=== PATIENT | male | born 1965 | race Caucasian/White ===

== ENCOUNTER → 2023-04-07 | Outpatient (CLI) | payer OTHER ==
--- NOTE | 2023-04-07 15:02 | XR ---
EXAMINATION TYPE: XR lumbar spine 2 or 3V DATE OF EXAM: 04/07/2023 CLINICAL HISTORY: Lower back pain TECHNIQUE: Three views of the lumbar spine are submitted. COMPARISON: None. FINDINGS: There are 5 lumbar type vertebral bodies identified. The lumbar spine shows satisfactory alignment w ithout evidence of acute fracture or dislocation. Suggested pars defect at L5-S1 on the left. Vertebr al body heights are within normal limits. There is mild joint space narrowing with endplate scleros is at T11-T12 and L5-S1. The overlying soft tissue appears unremarkable. 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 IMPRESSION: 1. No acute fracture or dislocation is seen in the lumbar spine. 2. Suggested pars defect at L5-S1 on the left. No spondylolisthesis. This can be further evaluated w ith CT lumbar spine as clinically indicated. 3. Mild multilevel degenerative disease.
== END | disposition home or self-care (01) ==
LOC: RADXRMAIN 14:41
PROVIDERS: ATTEND Family Medicine
DX: M54.50 Low back pain, unspecified (principal); M47.816 Spondylosis without myelopathy or radiculopathy, lumbar region
CPT/HCPCS: 72100

== ENCOUNTER → 2023-08-18 | Outpatient (CLI) | payer OTHER ==
--- NOTE | 2023-08-18 18:48 | CT ---
EXAMINATION TYPE: CT hip RT wo con DATE OF EXAM: 08/18/2023 COMPARISON: None HISTORY: right hip pain CT DLP: 539.5 mGycm Automated exposure control for dose reduction was used. FINDINGS: There is no fracture, dislocation, intraosseous or intra-articular abnormality. There are no soft tis emilia abnormalities. The right hemipelvis is intact. IMPRESSION: NO SIGNIFICANT ABNORMALITY SEEN.
--- NOTE | 2023-08-18 18:53 | CT ---
EXAMINATION TYPE: CT lumbar spine wo con DATE OF EXAM: 08/18/2023 11:05 AM COMPARISON: None HISTORY: low back pain CT DLP: 866.1 mGycm Automated exposure control for dose reduction was used. Unenhanced CT of the lumbar spine was performed. Bone and soft tissue window settings are submitted as well as coronal and sagittal reconstructions. Findings: The lumbar vertebral segments are normal in height and there is no fracture. There are prominent Schm orl's node within the superior endplates of T11 and T12. There is a slight retrolisthesis of L5 and S1. There is moderate degenerative disease at the L5-S1 level where there is moderate disc space narrowin g, vacuum phenomena and hypertrophic spurring. The disc spaces from L1 through L5 are well preserved. There are no lumbar disc herniations. Secondary to circumferential disc bulge and mild thickening of ligamentum flavum, there is an mild sp inal stenosis at the L4-5 level. There is mild facet arthropathy at the L2-3, L3-4, L4-5 and L5-S1 levels. There is mild to moderate bony neural foraminal encroachment at L5-S1 level bilaterally. Visualized sacrum and SI joints are normal.. IMPRESSION: 1. No lumbar spine fracture. 2. Slight retrolisthesis of L5 and S1. 3. Moderate degenerative disease at the L5-S1 level. There are no lumbar disc herniations. 4. Mild spinal stenosis at the L4-5 level. 5. Mild to moderate bony neural foraminal encroachment at the L5-S1 level bilaterally.
== END | disposition home or self-care (01) ==
LOC: RADCTMAIN 10:03
PROVIDERS: ATTEND Family Medicine
DX: M43.17 Spondylolisthesis, lumbosacral region (principal); M48.061 Spinal stenosis, lumbar region without neurogenic claudication; M47.817 Spondylosis without myelopathy or radiculopathy, lumbosacral region; M99.73 Connective tissue and disc stenosis of intervertebral foramina of lumbar region; M25.551 Pain in right hip
CPT/HCPCS: 72131